=== PATIENT | female | born 1970 | race Caucasian/White ===

== ENCOUNTER 2019-06-21 17:53 | Emergency (ER) | payer SELFPAY ==
[~2019-06-21] VITALS: Ht 160 cm; Wt 107.0 kg
[2019-06-21] MEDS ORDERED: ondansetron 4mg rapidly disintigrating tab PO ONE (19:30)
[2019-06-21] MEDS ORDERED: HYDROcodone/acetaminophen 5mg/325mg tablet PO ONE (19:30)
[2019-06-21] MEDS ORDERED: HYDR-3965 PO (19:33)
[2019-06-21] MEDS ORDERED: ONDA4TAB6 PO (19:33)
[2019-06-21 19:42] VITALS: BP 124/72
== END 2019-06-21 20:30 | disposition home or self-care (01) ==
LOC: ER 17:54
DX: S63.591A Other specified sprain of right wrist, initial encounter (principal); S53.491A Other sprain of right elbow, initial encounter; Z79.899 Other long term (current) drug therapy; Z91.040 Latex allergy status; W18.39XA Other fall on same level, initial encounter; Y93.89 Activity, other specified; Y92.89 Other specified places as the place of occurrence of the external cause; Y99.8 Other external cause status
CPT/HCPCS: 29125; 73080; 73110; 99284